=== PATIENT | male | born 1950 | race Caucasian/White ===

== ENCOUNTER 2019-08-08 12:36 | Inpatient (IN) ==
[2019-08-08 14:05] LABS: Bilirubin,Urine Negative (Negative); Blood,Urine Negative (Negative); Clarity,Urine Clear (Clear); Color,Urine Yellow (Yellow); Glucose,Urine (UA) Normal (Normal); Ketones,Urine Negative (Negative); Leukocyte Esterase,Urine Negative (Negative); Nitrite,Urine Negative (Negative); Protein,Urine Negative (Neg-Trace); Specific Gravity,Urine 1.011 (1.010-1.025); Urobilinogen,Urine Normal (Normal)
[2019-08-08 14:23] LABS: Hematocrit 34.1 % (37.5-50.1); Hemoglobin 12.2 g/dL (12.9-16.9); Mean Corpuscular HGB Conc 35.8 g/dL (31.6-35.5); Mean Corpuscular Hemoglobin 40.4 pg (28.0-33.3); Mean Corpuscular Volume 112.9 fL (83.0-100.0); Platelet Count 260 K/mcL (140-400); Red Blood Count 3.02 M/mcL (4.19-5.50); Red Cell Distribution Width 13.4 % (11.5-14.5); White Blood Count 10.5 K/mcL (4.3-11.1)
[2019-08-08 14:48] LABS: Potassium 3.6 mEq/L (3.5-5.1)
[2019-08-08] MEDS ORDERED: Gadolinium Contrast Agent (WT Based) IV PRN (15:49)
[2019-08-08] MEDS ORDERED: Naloxone 0.4 MG/ML INJ IVP PRN (16:20)
[2019-08-08] MEDS ORDERED: Ipratropium/Albuterol Neb 3 ML IH PRN (16:40)
[2019-08-08] MEDS ORDERED: Diphenoxylate/Atropine 1 TAB TABLET PO PRN (16:40)
[2019-08-08] MEDS ORDERED: Melatonin 3 MG TABLET PO PRN (16:40)
[2019-08-08] MEDS ORDERED: Dextrose 4 GM Chewable Tablets PO PRN (16:40)
[2019-08-08] MEDS ORDERED: *HR* Dextrose 50 % in Water (Syg) 50 ML SYRINGE IVP PRN (17:27)
[2019-08-08] MEDS ORDERED: Dextrose Gel 15 GM/37.5 ML TUBE PO PRN ×2 (17:27)
[2019-08-08] MEDS ORDERED: D5% in Water 1,000 ML IVC PRN (17:27)
[2019-08-08] MEDS: Famotidine 20 MG TABLET PO SCH (18:02)
[2019-08-08] MEDS: Metoprolol XL (24 HR) Succ 50 MG TAB.ER.24H PO SCH (18:02)
[2019-08-08] MEDS: *HR* OxyCODONE/APAP 5/325 TABLET PO SCH ×2 (18:02→21:53)
[2019-08-08 19:19] LABS: Estimated Average Glucose 120 mg/dl
[2019-08-08] MEDS ORDERED: *HR* LORazepam 0.5 MG TABLET PO ONE (19:57)
[2019-08-08] MEDS: traZODone 50 MG TABLET PO SCH (20:09)
[2019-08-08] MEDS: Gabapentin 400 MG CAPSULE PO SCH (20:09)
[2019-08-08] MEDS: *HR* Heparin 5,000 UNIT/ML VIAL SQ SCH (20:09)
[2019-08-08] MEDS: Insulin LISPRO 300 UNITS/3 ML VIAL SQ SCH (20:10)
[2019-08-08] MEDS: Fluticasone Propionate Nasal 50 MCG/SPRAY BOTTLE NS SCH (20:11)
[2019-08-08] MEDS: Budesonide/Formoterol 160/4.5 1 PUFF INH IH SCH (20:44)
[2019-08-09] MEDS: *HR* Heparin 5,000 UNIT/ML VIAL SQ SCH ×2 (05:29→16:25)
[2019-08-09] MEDS: Budesonide/Formoterol 160/4.5 1 PUFF INH IH SCH ×2 (08:00→20:35)
[2019-08-09] MEDS: Insulin LISPRO 300 UNITS/3 ML VIAL SQ SCH ×4 (09:39→21:03)
[2019-08-09] MEDS: *HR* OxyCODONE/APAP 5/325 TABLET PO SCH ×4 (09:40→21:15)
[2019-08-09] MEDS: Cholecalciferol (D-3) 1,000 UNIT (25MCG) TABLET PO SCH (09:40)
[2019-08-09] MEDS: Gabapentin 400 MG CAPSULE PO SCH ×2 (09:40→21:06)
[2019-08-09] MEDS: Venlafaxine XR (24 HR) 75 MG CAP.ER.24H PO SCH (09:40)
[2019-08-09] MEDS: Fluticasone Propionate Nasal 50 MCG/SPRAY BOTTLE NS SCH ×2 (09:42→21:07)
[2019-08-09 15:27] LABS: Basophils # 0.1 K/mcL (0.0-0.2); Basophils % 0.7 %; Eosinophils # 0.2 K/mcL (0.0-0.6); Eosinophils % 2.3 %; Hematocrit 35.2 % (37.5-50.1); Hemoglobin 12.7 g/dL (12.9-16.9); Immature Granulocytes % 0.3 % (0-4); Immature Platelets 3.5 % (1.1-6.1); Lymphocytes # 2.4 K/mcL (0.6-4.6); Lymphocytes % 25.4 %; Mean Corpuscular HGB Conc 36.1 g/dL (31.6-35.5); Mean Corpuscular Hemoglobin 40.7 pg (28.0-33.3); Mean Corpuscular Volume 112.8 fL (83.0-100.0); Mean Platelet Volume 9.2 fL (9.4-12.4); Monocytes # 0.5 K/mcL (0.0-1.3); Monocytes % 5.1 %; Neutrophils # 6.4 K/mcL (1.6-8.9); Platelet Count 280 K/mcL (140-400); Red Blood Count 3.12 M/mcL (4.19-5.50); Red Cell Distribution Width 13.8 % (11.5-14.5); Segmented Neutrophils % 66.2 %; White Blood Count 9.6 K/mcL (4.3-11.1)
[2019-08-09] MEDS: Famotidine 20 MG TABLET PO SCH (16:24)
[2019-08-09] MEDS: traZODone 50 MG TABLET PO SCH (16:24)
[2019-08-09] MEDS: Metoprolol XL (24 HR) Succ 50 MG TAB.ER.24H PO SCH (16:24)
[2019-08-09 16:36] LABS: Calcium 8.5 mg/dL (8.6-10.3); Potassium 3.7 mEq/L (3.5-5.1)
[2019-08-10] MEDS: *HR* Heparin 5,000 UNIT/ML VIAL SQ SCH ×2 (05:53→17:19)
[2019-08-10] MEDS: Budesonide/Formoterol 160/4.5 1 PUFF INH IH SCH ×2 (08:20→21:54)
[2019-08-10] MEDS: Insulin LISPRO 300 UNITS/3 ML VIAL SQ SCH ×4 (08:45→20:15)
[2019-08-10] MEDS: Venlafaxine XR (24 HR) 75 MG CAP.ER.24H PO SCH (08:46)
[2019-08-10] MEDS: *HR* OxyCODONE/APAP 5/325 TABLET PO SCH ×4 (08:46→20:00)
[2019-08-10] MEDS: Gabapentin 400 MG CAPSULE PO SCH ×2 (08:46→20:00)
[2019-08-10] MEDS: Cholecalciferol (D-3) 1,000 UNIT (25MCG) TABLET PO SCH (08:47)
[2019-08-10] MEDS: Fluticasone Propionate Nasal 50 MCG/SPRAY BOTTLE NS SCH ×2 (08:47→20:03)
[2019-08-10 15:53] LABS: Calcium 8.7 mg/dL (8.6-10.3); Potassium 3.9 mEq/L (3.5-5.1)
[2019-08-10] MEDS: Metoprolol XL (24 HR) Succ 50 MG TAB.ER.24H PO SCH (17:18)
[2019-08-10] MEDS: traZODone 50 MG TABLET PO SCH (17:19)
[2019-08-10] MEDS ORDERED: Famotidine 20 MG TABLET PO SCH (18:00)
[2019-08-11] MEDS: *HR* Heparin 5,000 UNIT/ML VIAL SQ SCH (05:13)
[2019-08-11 07:13] LABS: Calcium 8.4 mg/dL (8.6-10.3); Potassium 3.9 mEq/L (3.5-5.1)
[2019-08-11] MEDS: Budesonide/Formoterol 160/4.5 1 PUFF INH IH SCH (07:41)
[2019-08-11] MEDS: Insulin LISPRO 300 UNITS/3 ML VIAL SQ SCH ×2 (07:45→11:44)
[2019-08-11] MEDS: Cholecalciferol (D-3) 1,000 UNIT (25MCG) TABLET PO SCH (09:42)
[2019-08-11] MEDS: Venlafaxine XR (24 HR) 75 MG CAP.ER.24H PO SCH (09:42)
[2019-08-11] MEDS: Gabapentin 400 MG CAPSULE PO SCH (09:42)
[2019-08-11] MEDS: *HR* OxyCODONE/APAP 5/325 TABLET PO SCH ×2 (09:43→13:43)
[2019-08-11] MEDS: Fluticasone Propionate Nasal 50 MCG/SPRAY BOTTLE NS SCH (09:43)
[2019-08-11 11:14] VITALS: BP 138/83
== END 2019-08-11 16:38 | disposition home health service (06) | DRG 65 ==
LOC: EMEROOARM 12:36 → 3BNU 12:36 → OBSVTOIN 16:33 → SUATTDRO 16:33 → 3BNU 17:05
PROVIDERS: ADMIT Internal Medicine; ATTEND Internal Medicine